=== PATIENT | female | born 1960 | race Caucasian/White ===

== ENCOUNTER 2017-06-07 13:25 | Emergency (ER) | payer BC ==
--- NOTE | 2017-06-07 14:16 | ER Document Report ---
ED General - General Chief Complaint: ETOH Abuse Stated Complaint: POSSIBLE DETOX Time Seen by Provider: 06/07/17 13:58 Mode of Arrival: Ambulatory Information source: Patient Notes: 57-year-old female presents with complaints of wanting to stop drinking. Patient notes she has had an extensive history of alcohol abuse, normally drinks extensively throughout the day, patient has never seized from withdrawing. Last drinks were this morning. Patient denies feeling any withdrawal symptoms at this time TRAVEL OUTSIDE OF THE [place] IN LAST 30 DAYS: No - HPI Onset: Just prior to arrival Onset/Duration: Sudden Quality of pain: No pain Severity: None Pain Level: Denies Associated symptoms: None Exacerbated by: Denies Relieved by: Denies Similar symptoms previously: Yes - detox 10 years ago Recently seen / treated by doctor: Yes Past Medical History - Social History Smoking Status: Former Smoker Cigarette use (# per day): No Chew tobacco use (# tins/day): No Smoking Education Provided: No Frequency of alcohol use: Heavy Drug Abuse: None Family History: Reviewed & Not Pertinent Patient has suicidal ideation: No Patient has homicidal ideation: No - Past Medical History Cardiac Medical History: Reports: Hx Hypercholesterolemia, Hx Hypertension Endocrine Medical History: Reports: Hx Diabetes Mellitus Type 2 Renal/ Medical History: Denies: Hx Peritoneal Dialysis Psychiatric Medical History: Reports: Hx Depression Past Surgical History: Reports: Hx Mastectomy - L side Review of Systems - Review of Systems Notes: REVIEW OF SYSTEMS: CONSTITUTIONAL : Denies fever, chills, or sweats. Denies recent illness. EENT: Denies eye, ear, throat, or mouth pain or symptoms. Denies nasal or sinus congestion or discharge. Denies throat, tongue, or mouth swelling or difficulty swallowing. CARDIOVASCULAR: Denies chest pain. Denies palpitations or racing or irregular heart beat. Denies ankle edema. RESPIRATORY: Denies cough, cold, or chest congestion. Denies shortness of breath, difficulty breathing, or wheezing. GASTROINTESTINAL: Denies abdominal pain or distention. Denies nausea, vomiting , or diarrhea. Denies blood in vomitus, stools, or per rectum. Denies black, tarry stools. Denies constipation. GENITOURINARY: Denies difficulty urinating, painful urination, burning, frequency, blood in urine, or discharge. FEMALE GENITOURINARY: Denies vaginal bleeding, heavy or abnormal periods, irregular periods. Denies vaginal discharge or odor. MUSCULOSKELETAL: Denies back or neck pain or stiffness. Denies joint pain or swelling. SKIN: Denies rash, lesions or sores. HEMATOLOGIC : Denies easy bruising or bleeding. LYMPHATIC: Denies swollen, enlarged glands. NEUROLOGICAL: Denies confusion or altered mental status. Denies passing out or loss of consciousness. Denies dizziness or lightheadedness. Denies headache. Denies weakness or paralysis or loss of use of either side. Denies problems with gait or speech. Denies sensory loss, numbness, or tingling. Denies seizures. PSYCHIATRIC: Admits to extensive alcohol use ALL OTHER SYSTEMS REVIEWED AND NEGATIVE. PHYSICAL EXAMINATION: GENERAL: Thin appearing female HEAD: Atraumatic, normocephalic. EYES: Pupils equal round and reactive to light, extraocular movements intact, conjunctiva are normal. ENT: Nares patent, oropharynx clear without exudates. Moist mucous membranes. NECK: Normal range of motion, supple without lymphadenopathy LUNGS: Breath sounds clear to auscultation bilaterally and equal. No wheezes rales or rhonchi. HEART: Regular rate and rhythm without murmurs ABDOMEN: Soft, nontender, nondistended abdomen. No guarding, no rebound. No masses appreciated. Female : deferred Musculoskeletal: Normal range of motion, no pitting or edema. No cyanosis. NEUROLOGICAL: Cranial nerves grossly intact. Normal speech, normal gait. Normal sensory, motor exams PSYCH: daughter notes patient has suicidal ideation patient denies SKIN: Warm, Dry, normal turgor, no rashes or lesions noted. Dictation was performed using veriCAR voice recognition software Physical Exam - Vital signs Vitals: Temp Pulse Resp BP Pulse Ox 98.4 F 98 20 181/116 H 99 06/07/17 13:33 06/07/17 13:33 06/07/17 13:33 06/07/17 13:33 06/07/17 13:33 Course - Re-evaluation Re-evalutation: 06/07/17 14:16 Mental health will evaluate patient, lab work pending 06/07/17 17:09 Patient was evaluated by mental health believe patient is stable for detox outpatient, family has already made contact with outpatient detox as well, they wish to go home to follow-up tomorrow morning where they have an appointment After performing a Medical Screening Examination, I estimate there is LOW risk for any life threatening mental health issues. At this time the patient looks extremely well and has not attempted severe self harm. I have reevaluated this patient multiple times and no significant life threatening changes are noted. The patient and I have discussed the diagnosis and risks, and we agree with discharging home with close follow-up with the understanding that symptoms and presentations can change. We also discussed returning to the Emergency Department immediately if new or worsening symptoms occur. We have discussed the symptoms which are most concerning (hallucinations, thoughts or actions of self harm or harm to others) that necessitate immediate return. - Vital Signs Vital signs: Temp Pulse Resp BP Pulse Ox 98.4 F 98 20 181/116 H 99 06/07/17 13:33 06/07/17 13:33 06/07/17 13:33 06/07/17 13:33 06/07/17 13:33 - Laboratory Result Diagrams: 06/07/17 14:20 06/07/17 14:20 Laboratory results interpreted by me: 06/07/17 06/07/17 14:20 14:20 MCV 98 H Plt Count 143 L Sodium 146.2 H Chloride 109 H BUN 24 H Glucose 132 H AST 51 H ALT 54 H Salicylates < 1.0 L Acetaminophen < 10 L Discharge - Discharge Clinical Impression: ETOH abuse Condition: Fair Disposition: HOME, SELF-CARE Additional Instructions: CHRONIC ALCOHOLISM and ALCOHOL ABUSE: Your evaluation reveals evidence of chronic alcoholism, an addiction to alcohol. The tendency to alcoholism may be inherited. Chronic use of alcohol weakens muscles, causes fatty deposits in the liver , damages the stomach, makes you more prone to infections, and can cause defects in unborn children. In the long run, brain atrophy and cirrhosis of the liver result. You are also at greater risk for certain types of cancer, such as cancer of the mouth, throat, stomach, and liver. Counselling services are available to help you. In-hospital treatment programs often help. Support groups such as Alcoholics Anonymous can be very useful in beating this addiction. Your physician can make a referral for you. As alcoholics often are prone to other addictions, you should discuss your use of any other medications with the doctor. ALCOHOL WITHDRAWAL: Your symptoms are caused by alcohol withdrawal. After a period of frequent drinking, the brain and body are changed by the alcohol. When you quit or reduce your drinking, the nervous system becomes unstable. Withdrawal symptoms can start a few hours after your last drink, but sometimes don't begin until a couple of days later. Symptoms can include shakiness, sweating, insomnia, nausea , vomiting, fearfulness, hallucinations, and seizures. In addition to the acute effects of alcohol withdrawal, we often have to deal with the medical effects of alcoholism. These problems often include dehydration, stomach irritation, intestinal bleeding, low blood sugar, liver disease, and pancreas inflammation. Treatment for alcohol withdrawal includes mild sedatives, vitamins, and fluids. You need to be with someone who can help if symptoms become severe. Many patients can withdraw at home. Admission to the hospital or a detox facility may be necessary if withdrawal symptoms are severe and uncontrollable. Abstaining from alcohol is the only effective long-term treatment. If you start drinking again, you will not be able to control yourself after the first drink. Treatment programs are available. In addition, many alcoholics benefit from Alcoholics Anonymous or other support groups available through your counselor or jew wire technician. AL-ANON and ALA-TEEN are support groups for friends and family members of an alcoholic. Go to the emergency room if you develop persistent vomiting, severe abdominal pain, fever, shortness of breath, hallucinations, uncontrollable tremors, or seizures. You should follow through with going to [facility] by 0900 tomorrow (06/08/2017) for alcohol detoxification.
[2017-06-07 14:34] LABS: ABSOLUTE EOSINOPHILS # (AUTO) 0.1 10^3/uL (0.0-0.6); ABSOLUTE LYMPHOCYTES (AUTO) 2.4 10^3/uL (0.5-4.7); ABSOLUTE MONOCYTES (AUTO) 0.4 10^3/uL (0.1-1.4); ABSOLUTE NEUT (AUTO) 4.7 10^3/uL (1.7-8.2); BASOPHILS % (AUTO) 0.2 % (0-2); EOSINOPHILS % (AUTO) 0.7 % (0-6); HEMATOCRIT 45.1 % (36.0-47.0); HEMOGLOBIN 15.2 g/dL (12.0-15.5); HGB HCT DIFFERENCE 0.5; LYMPHOCYTES % (AUTO) 31.9 % (13-45); MEAN CORPUSCULAR HEMOGLOBIN 33.1 pg (27.0-33.4); MEAN CORPUSCULAR HGB CONC 33.7 g/dL (32.0-36.0); MEAN CORPUSCULAR VOLUME 98 fl (80-97); MONOCYTES % (AUTO) 5.1 % (3-13); RED CELL DISTRIBUTION WIDTH 13.9 % (11.5-14.0); SEGMENTED NEUTROPHILS % (AUTO) 62.1 % (42-78); WHITE BLOOD COUNT 7.6 10^3/uL (4.0-10.5)
[2017-06-07 14:55] LABS: ALANINE AMINOTRANSFERASE 54 U/L (9-52); ALBUMIN 4.6 g/dL (3.5-5.0); ALCOHOL 195 mg/dL (NONE DETECTED); ALKALINE PHOSPHATASE 107 U/L (38-126); ANION GAP 11 (5-19); ASPARTATE AMINO TRANSFERASE 51 U/L (14-36); BILIRUBIN,DIRECT 0.2 mg/dL (0.0-0.4); BILIRUBIN,TOTAL 0.9 mg/dL (0.2-1.3); BLOOD UREA NITROGEN 24 mg/dL (7-20); CALCIUM 9.3 mg/dL (8.4-10.2); CARBON DIOXIDE 26 mmol/L (22-30); CHLORIDE 109 mmol/L (98-107); CREATININE RESULT 0.67 mg/dL (0.52-1.25); GLUCOSE 132 mg/dL (75-110); POTASSIUM 4.1 mmol/L (3.6-5.0); SODIUM 146.2 mmol/L (137-145); TOTAL PROTEIN 7.9 g/dL (6.3-8.2)
[2017-06-07 15:01] LABS: URINE BARBITURATES SCREEN NEGATIVE; URINE METHADONE SCREEN NEGATIVE; URINE OPIATES LOW NEGATIVE; URINE PHENCYCLIDINE SCREEN NEGATIVE
--- NOTE | 2017-06-07 17:08 | ER Document Report ---
ED Psych Disorder / Suicide - General Chief Complaint: ETOH Abuse Stated Complaint: POSSIBLE DETOX Time Seen by Provider: 06/07/17 13:58 Mode of Arrival: Ambulatory Information source: Patient, Relative - daughter TRAVEL OUTSIDE OF THE [place] IN LAST 30 DAYS: No - HPI Patient complains to provider of: Other - alcohol intoxication and use Onset: This morning Suicide Risk Factors: Substance abuse Situational problems related to: Spouse - recent separation Normal mood: Yes Associated symptoms: Normal affect, Normal mood Similar symptoms previously: Yes Recently seen / treated by doctor: Yes Notes: Patient is a 57 year old female who presented to the ED via her daughter today for alcohol intoxication, use, and wanting detox. Past Medical History - General Information source: Patient - Social History Smoking Status: Former Smoker Cigarette use (# per day): No Chew tobacco use (# tins/day): No Frequency of alcohol use: Heavy Drug Abuse: None Family History: Reviewed & Not Pertinent Patient has suicidal ideation: No Patient has homicidal ideation: No - Past Medical History Cardiac Medical History: Reports: Hx Hypercholesterolemia, Hx Hypertension Endocrine Medical History: Reports: Hx Diabetes Mellitus Type 2 Renal/ Medical History: Denies: Hx Peritoneal Dialysis Psychiatric Medical History: Reports: Hx Depression Past Surgical History: Reports: Hx Mastectomy - L side Physical Exam - Vital signs Vitals: Temp Pulse Resp BP Pulse Ox 98.4 F 98 20 181/116 H 99 06/07/17 13:33 06/07/17 13:33 06/07/17 13:33 06/07/17 13:33 06/07/17 13:33 Course - Vital Signs Vital signs: Temp Pulse Resp BP Pulse Ox 98.4 F 98 20 181/116 H 99 06/07/17 13:33 06/07/17 13:33 06/07/17 13:33 06/07/17 13:33 06/07/17 13:33 - Laboratory Result Diagrams: 06/07/17 14:20 06/07/17 14:20 Laboratory results interpreted by me: 06/07/17 06/07/17 14:20 14:20 MCV 98 H Plt Count 143 L Sodium 146.2 H Chloride 109 H BUN 24 H Glucose 132 H AST 51 H ALT 54 H Salicylates < 1.0 L Acetaminophen < 10 L Discharge - Discharge Clinical Impression: Alcohol abuse Condition: Fair Disposition: HOME, SELF-CARE Additional Instructions: CHRONIC ALCOHOLISM and ALCOHOL ABUSE: Your evaluation reveals evidence of chronic alcoholism, an addiction to alcohol. The tendency to alcoholism may be inherited. Chronic use of alcohol weakens muscles, causes fatty deposits in the liver , damages the stomach, makes you more prone to infections, and can cause defects in unborn children. In the long run, brain atrophy and cirrhosis of the liver result. You are also at greater risk for certain types of cancer, such as cancer of the mouth, throat, stomach, and liver. Counselling services are available to help you. In-hospital treatment programs often help. Support groups such as Alcoholics Anonymous can be very useful in beating this addiction. Your physician can make a referral for you. As alcoholics often are prone to other addictions, you should discuss your use of any other medications with the doctor. ALCOHOL WITHDRAWAL: Your symptoms are caused by alcohol withdrawal. After a period of frequent drinking, the brain and body are changed by the alcohol. When you quit or reduce your drinking, the nervous system becomes unstable. Withdrawal symptoms can start a few hours after your last drink, but sometimes don't begin until a couple of days later. Symptoms can include shakiness, sweating, insomnia, nausea , vomiting, fearfulness, hallucinations, and seizures. In addition to the acute effects of alcohol withdrawal, we often have to deal with the medical effects of alcoholism. These problems often include dehydration, stomach irritation, intestinal bleeding, low blood sugar, liver disease, and pancreas inflammation. Treatment for alcohol withdrawal includes mild sedatives, vitamins, and fluids. You need to be with someone who can help if symptoms become severe. Many patients can withdraw at home. Admission to the hospital or a detox facility may be necessary if withdrawal symptoms are severe and uncontrollable. Abstaining from alcohol is the only effective long-term treatment. If you start drinking again, you will not be able to control yourself after the first drink. Treatment programs are available. In addition, many alcoholics benefit from Alcoholics Anonymous or other support groups available through your counselor or alevism hoop maker. AL-ANON and MINDI-TEEN are support groups for friends and family members of an alcoholic. Go to the emergency room if you develop persistent vomiting, severe abdominal pain, fever, shortness of breath, hallucinations, uncontrollable tremors, or seizures. You should follow through with going to [facility] by 0900 tomorrow (06/08/2017) for alcohol detoxification.
[2017-06-07 17:15] VITALS: BP 179/105
--- NOTE | 2017-06-07 21:12 | EKG REPORT ---
SEVERITY:- BORDERLINE ECG - SINUS RHYTHM LEFT AXIS DEVIATION : Confirmed by: Rolando Hannon MD 07-Jun-2017 21:11:35
== END 2017-06-07 17:30 | disposition home or self-care (01) ==
LOC: ER 13:25
DX: F10.229 Alcohol dependence with intoxication, unspecified (principal); Z87.891 Personal history of nicotine dependence
CPT/HCPCS: 36415; 80053; 80307; 85025; 93005; 93010; 99284

== ENCOUNTER 2017-12-09 09:22 | Emergency (ER) | payer BC ==
--- NOTE | 2017-12-09 09:47 | ER Document Report ---
ED Medical Screen (RME) - General Chief Complaint: Abnormal Lab Results Stated Complaint: ABNORMAL LABS Time Seen by Provider: 12/09/17 09:35 Notes: 57-year-old female alcoholic sent to emergency room for abnormal lab work done yesterday at [facility]. Her daughter noticed that her eyes were turning yellow and insisted she be seen. Her potassium was 3.0 CBC was normal her total bilirubin was 14.0 direct was 12.48, SGOT 266, SGPT 95, cholesterol 448, triglycerides 531. Thyroid functions normal. She was told she had a urinary tract infection based on the dark-colored urine but culture showed colony count less than 10,000, she was still treated with Cipro for this dark urine which I suspect was due to all the bilirubin. We will repeat her lab work at this time, get a right upper quadrant ultrasound. I have greeted and performed a rapid initial assessment of this patient. A comprehensive ED assessment and evaluation of the patient, analysis of test results and completion of the medical decision making process will be conducted by additional ED providers. TRAVEL OUTSIDE OF THE [place] IN LAST 30 DAYS: No - Related Data Allergies/Adverse Reactions: Penicillins Allergy (Verified 12/09/17 09:23) Past Medical History - Social History Frequency of alcohol use: Occasional Drug Abuse: None - Past Medical History Cardiac Medical History: Reports: Hx Hypercholesterolemia, Hx Hypertension Endocrine Medical History: Reports: Hx Diabetes Mellitus Type 2 Renal/ Medical History: Denies: Hx Peritoneal Dialysis Psychiatric Medical History: Reports: Hx Depression Past Surgical History: Reports: Hx Mastectomy - L side Physical Exam - Vital signs Vitals: Temp Pulse Resp BP Pulse Ox 97.9 F 112 H 16 138/97 H 98 12/09/17 09:26 12/09/17 09:26 12/09/17 09:26 12/09/17 09:26 12/09/17 09:26 Course - Vital Signs Vital signs: Temp Pulse Resp BP Pulse Ox 97.9 F 112 H 16 138/97 H 98 12/09/17 09:26 12/09/17 09:26 12/09/17 09:26 12/09/17 09:26 12/09/17 09:26
[2017-12-09 10:19] LABS: APPEARANCE,URINE CLOUDY; BILIRUBIN,URINE MODERATE (NEGATIVE); CALCIUM OXALATE CRYSTALS,URINE RARE /HPF; COLOR,URINE AMBER; GLUCOSE, URINE NEGATIVE (NEGATIVE); HEMATOCRIT 40.3 % (36.0-47.0); HEMOGLOBIN 13.6 g/dL (12.0-15.5); KETONES,URINE NEGATIVE (NEGATIVE); LEUKOCYTE ESTERASE,URINE NEGATIVE (NEGATIVE); MEAN CORPUSCULAR HEMOGLOBIN 34.2 pg (27.0-33.4); MEAN CORPUSCULAR HGB CONC 33.7 g/dL (32.0-36.0); MEAN CORPUSCULAR VOLUME 101 fl (80-97); NITRITE,URINE NEGATIVE (NEGATIVE); PROTEIN,URINE NEGATIVE (NEGATIVE); RED BLOOD COUNT 3.97 10^6/uL (3.72-5.28); RED CELL DISTRIBUTION WIDTH 18.8 % (11.5-14.0); URINE SPECIFIC GRAVITY 1.009; WHITE BLOOD COUNT 3.6 10^3/uL (4.0-10.5)
[2017-12-09 10:35] LABS: ALANINE AMINOTRANSFERASE 135 U/L (9-52); ALBUMIN 3.8 g/dL (3.5-5.0); ALKALINE PHOSPHATASE 386 U/L (38-126); ANION GAP 16 (5-19); ASPARTATE AMINO TRANSFERASE 368 U/L (14-36); BILIRUBIN,DIRECT 12.9 mg/dL (0.0-0.4); BILIRUBIN,TOTAL 15.6 mg/dL (0.2-1.3); BLOOD UREA NITROGEN 13 mg/dL (7-20); CALCIUM 9.7 mg/dL (8.4-10.2); CARBON DIOXIDE 29 mmol/L (22-30); CHLORIDE 96 mmol/L (98-107); GLUCOSE 156 mg/dL (75-110); POTASSIUM 3.3 mmol/L (3.6-5.0); SODIUM 140.9 mmol/L (137-145)
[2017-12-09 10:44] LABS: PLATELET COUNT 44 10^3/uL (150-450)
[2017-12-09 10:45] LABS: MAGNESIUM 1.2 mg/dL (1.6-2.3)
[2017-12-09 10:50] LABS: ABSOLUTE LYMPHOCYTES# (MANUAL) 1.6 10^3/uL (0.5-4.7); ABSOLUTE MONOCYTES # (MANUAL) 0.3 10^3/uL (0.1-1.4); ABSOLUTE NEUTROPHILS# (MANUAL) 1.6 10^3/uL (1.7-8.2); ANISOCYTOSIS 2+; BAND NEUTROPHILS % (MANUAL) 1 % (3-5); BASOPHILS % (MANUAL) 1 % (0-2); EOSINOPHILS % (MANUAL) 3 % (0-6); HYPOCHROMASIA SLIGHT; LYMPHOCYTES % (MANUAL) 44 % (13-45); METAMYELOCYTES % (MANUAL) 1 % (0); MONOCYTES % (MANUAL) 7 % (3-13); PLATELET COMMENT DECREASED; PLATELET LARGE PRESENT; SEGMENTED NEUTROPHILS % (MAN) 43 % (42-78); STOMATOCYTES 1+; TARGET CELLS 2+; TOTAL CELLS COUNTED 100
[2017-12-09 10:51] LABS: HYPERSEGMENTED NEUTROPHILS PRESENT
[2017-12-09] MEDS ORDERED: POTASSIUM CHLORIDE 20 MEQ/15 ML UDCUP PO ONE (10:51)
[2017-12-09] MEDS ORDERED: MAGNESIUM OXIDE 400 MG TABLET PO ONE (10:52)
--- NOTE | 2017-12-09 12:03 | RADIOLOGY REPORT (SQ) ---
EXAM DESCRIPTION: U/S ABDOMEN LIMITED W/O DOP COMPLETED DATE/TIME: 12/09/2017 11:49 am REASON FOR STUDY: Markedly elevated bili with elevated transaminases COMPARISON: None. TECHNIQUE: Dynamic and static grayscale images acquired of the abdomen and recorded on PACS. Additio nal selected color Doppler and spectral images recorded. LIMITATIONS: None. FINDINGS: PANCREAS: Midline pancreas LIVER: Normal size. Echogenic from diffuse hepatocellular disease or fatty infiltration. No focal m asses. No intrahepatic biliary ductal dilatation LIVER VASCULATURE: Normal directional flow of the main portal vein and hepatic veins. GALLBLADDER: No stones. Normal wall thickness. No pericholecystic fluid. ULTRASOUND-DETECTED ROSADO'S SIGN: Negative. INTRAHEPATIC DUCTS AND COMMON DUCT: CBD and intrahepatic ducts normal caliber. No filling defects. D istal most common duct not well seen due to duodenum gas INFERIOR VENA CAVA: Normal flow. AORTA: No aneurysm. RIGHT KIDNEY: Normal size. Normal echogenicity. No solid or suspicious masses. No hydronephrosis. No calcifications. PERITONEAL AND RIGHT PLEURAL SPACE: No ascites or effusions. OTHER: No other significant findings. IMPRESSION: Echogenic liver, could be seen in diffuse hepatocellular disease or fatty infiltration No biliary ductal dilatation No stones in the gallbladder TECHNICAL DOCUMENTATION: JOB ID: [id number] [employer]- All Rights Reserved
[2017-12-09 13:07] LABS: INTERNATIONAL RATION (INR) 0.85; PROTHROMBIN TIME 12.3 SEC (11.4-15.4)
--- NOTE | 2017-12-09 13:57 | ER Document Report ---
ED General - General Chief Complaint: Abnormal Lab Results Stated Complaint: ABNORMAL LABS Time Seen by Provider: 12/09/17 09:35 Mode of Arrival: Ambulatory Information source: Patient, [facility] Records Notes: This 57-year-old female alcoholic was sent to emergency room for abnormal lab work done yesterday at [facility]. Her daughter noticed that her eyes were turning yellow insisted she be seen at the clinic. Her potassium was 3.0, CBC was normal, total bilirubin was 14.0 with a direct of 12.48, SGOT 266, SGPT 95, cholesterol 448, triglycerides 531. Thyroid functions were normal. Viral hepatitis testing was negative. She was told she had a urinary tract infection based on the dark-colored urine but a culture showed a colony count of less than 10,000 despite this she was treated with Cipro for this dark urine which I suspect was due to the bilirubin. She has been here in the past for alcohol abuse, she has been in rehab at least 6 or 7 times unsuccessfully. She states she does not drink that much at this time. We will repeat her lab work this time, check magnesium, check coags, and get a right upper quadrant abdominal ultrasound. TRAVEL OUTSIDE OF THE [place] IN LAST 30 DAYS: No - Related Data Allergies/Adverse Reactions: Penicillins Allergy (Verified 12/09/17 09:23) Past Medical History - General Information source: Patient, [facility] Records - Social History Smoking Status: Current Every Day Smoker Cigarette use (# per day): Yes Chew tobacco use (# tins/day): No Smoking Education Provided: No Frequency of alcohol use: Heavy Drug Abuse: None Occupation: Unemployed Lives with: Family Family History: Reviewed & Not Pertinent Patient has suicidal ideation: No Patient has homicidal ideation: No - Past Medical History Cardiac Medical History: Reports: Hx Hypercholesterolemia, Hx Hypertension Pulmonary Medical History: Reports: None EENT Medical History: Reports: None Neurological Medical History: Reports: None Endocrine Medical History: Reports: Hx Diabetes Mellitus Type 2 Renal/ Medical History: Reports: None GI Medical History: Reports: None Musculoskeltal Medical History: Reports None Skin Medical History: Reports None Psychiatric Medical History: Reports: Hx Depression Past Surgical History: Reports: Hx Mastectomy - L side Review of Systems - Review of Systems Constitutional: No symptoms reported EENT: No symptoms reported Cardiovascular: No symptoms reported Respiratory: No symptoms reported Gastrointestinal: No symptoms reported Genitourinary: No symptoms reported Female Genitourinary: Post menopausal Musculoskeletal: No symptoms reported Skin: No symptoms reported Hematologic/Lymphatic: No symptoms reported Neurological/Psychological: No symptoms reported Physical Exam - Vital signs Vitals: Temp Pulse Resp BP Pulse Ox 97.9 F 112 H 16 138/97 H 98 12/09/17 09:26 12/09/17 09:26 12/09/17 09:26 12/09/17 09:26 12/09/17 09:26 Interpretation: Normal - General General appearance: Appears well, Alert In distress: None Notes: Later during the day when all her labs were coming back she was starting to get some shakes. - HEENT Head: Normocephalic, Atraumatic Eyes: Scleral icterus Extraocular movements intact: Yes Pupils: PERRL Neck: Normal - Respiratory Respiratory status: No respiratory distress Breath sounds: Other - Coarse breath sounds - Cardiovascular Rhythm: Regular, Tachycardia - Heart rate about 110 Heart sounds: Normal auscultation Murmur: No - Abdominal Inspection: Normal Bowel sounds: Normal Tenderness: Nontender - Back Back: Normal - Extremities General upper extremity: Normal inspection General lower extremity: Normal inspection - Neurological Neuro grossly intact: Yes - Psychological Associated symptoms: Normal affect, Normal mood - Skin Skin Temperature: Warm Skin Moisture: Dry Skin Color: Normal Course - Re-evaluation Re-evalutation: 12/09/17 17:37 The ultrasound and lab work was reviewed with the patient and her daughter. The patient is not interested in assistance getting into a detox program at this time. She is advised to increase potassium in her diet to include several bananas today and increase fruits and vegetables. She was given a prescription for Mag- Ox to start today. She was given copies of her lab work and ultrasound report to take to her primary care provider in the next week for review and reevaluation of her status. She was encouraged to return if any new or worsening symptoms. - Vital Signs Vital signs: Temp Pulse Resp BP Pulse Ox 98.5 F 72 20 116/83 100 12/09/17 14:58 12/09/17 14:58 12/09/17 14:58 12/09/17 14:58 12/09/17 14:58 - Laboratory Result Diagrams: 12/09/17 09:57 12/09/17 09:57 Laboratory results interpreted by me: 12/09/17 12/09/17 12/09/17 09:57 09:57 09:57 WBC 3.6 L MCV 101 H MCH 34.2 H RDW 18.8 H Plt Count 44 L Band Neutrophils % 1 L Metamyelocytes % 1 H Abs Neuts (Manual) 1.6 L Potassium 3.3 L Chloride 96 L Est GFR (Non-Af Amer) 58 L Glucose 156 H Magnesium 1.2 L* Total Bilirubin 15.6 H Direct Bilirubin 12.9 H AST 368 H ALT 135 H Alkaline Phosphatase 386 H Urine Bilirubin MODERATE H Urine Urobilinogen 4.0 H - Diagnostic Test Radiology reviewed: Image reviewed, Reports reviewed - Ultrasound shows echogenic liver consistent with diffuse hepatocellular disease no stones in the gallbladder no biliary ductal dilatation. Discharge - Discharge Clinical Impression: Alcoholic hepatitis without ascites, Hypokalemia, Hypomagnesemia Condition: Stable Disposition: HOME, SELF-CARE Additional Instructions: Alcoholic Hepatitis: You have inflammation of the liver caused by alcohol. This is called "alcoholic hepatitis." Symptoms can include malaise, fatigue, lack of appetite , nausea and vomiting, dark urine, and jaundice. In the long run, alcohol damages the liver to cause cirrhosis. There is no cure for alcoholic hepatitis. The inflammation will go away if you stop drinking. While you are ill, you may receive medication to make you more comfortable. Do not drink alcohol, and don't take any drug or medication not approved by your doctor. Rest and try to eat a healthy diet. Call the doctor if vomiting or abdominal pain become severe. //////////////////////////////////////////////////////////////////////////////// //////////////////////////////////////////////////////////////////////////////// ////////////////// Your workup is most consistent with alcohol related hepatocellular injury also known his alcoholic hepatitis. He also have a low serum potassium and low serum magnesium levels. This is commonly seen in chronic alcohol abuse. You will be given a prescription for magnesium supplements. You should increase potassium in your diet. A good source of potassium is bananas and other fruits and vegetables. It is essential that you stop drinking alcohol to prevent further damage to your liver. You will be given copies of your lab work and ultrasounds to take back to your primary care provider for further management of your liver disease. You should follow-up with your doctor in the next 7-10 days to recheck your serum electrolytes and magnesium levels to see if he will require further potassium and magnesium supplements. RETURN TO THE EMERGENCY ROOM IF ANY NEW OR WORSENING SYMPTOMS. Prescriptions: Magnesium Oxide 400 mg PO BID #20 tablet
[2017-12-09 15:10] VITALS: BP 116/83
== END 2017-12-09 15:00 | disposition home or self-care (01) ==
LOC: ER 09:22
DX: E87.6 Hypokalemia (principal); E83.42 Hypomagnesemia; K70.10 Alcoholic hepatitis without ascites; F17.210 Nicotine dependence, cigarettes, uncomplicated; E78.00 Pure hypercholesterolemia, unspecified; I10 Essential (primary) hypertension; E11.9 Type 2 diabetes mellitus without complications; Z88.0 Allergy status to penicillin
CPT/HCPCS: 36415; 76705; 80053; 81001; 83735; 85025; 85610; 99284

== ENCOUNTER 2019-02-23 10:52 | Emergency (ER) | payer BC ==
[2019-02-23 11:33] LABS: HEMATOCRIT 34.6 % (36.0-47.0); MEAN CORPUSCULAR VOLUME 105 fl (80-97); RED BLOOD COUNT 3.28 10^6/uL (3.72-5.28); RED CELL DISTRIBUTION WIDTH 19.8 % (11.5-14.0); WHITE BLOOD COUNT 8.1 10^3/uL (4.0-10.5)
[2019-02-23 11:35] LABS: INTERNATIONAL RATION (INR) 1.82
[2019-02-23 11:49] LABS: ALANINE AMINOTRANSFERASE 162 U/L (9-52); ALBUMIN 3.3 g/dL (3.5-5.0); ALKALINE PHOSPHATASE 382 U/L (38-126); ANION GAP 18 (5-19); ASPARTATE AMINO TRANSFERASE 559 U/L (14-36); BLOOD UREA NITROGEN 16 mg/dL (7-20); CARBON DIOXIDE 24 mmol/L (22-30); CHLORIDE 88 mmol/L (98-107); GLUCOSE 83 mg/dL (75-110); TOTAL PROTEIN 8.4 g/dL (6.3-8.2)
[2019-02-23] MEDS ORDERED: NORMAL SALINE 1000 ML 1,000 ML IV ONE ×2 (11:52→19:50)
[2019-02-23] MEDS ORDERED: THIAMINE HCL 100 MG, FOLIC ACID 1 MG in NORMAL SALINE 250 ML IV ONE (11:53)
--- NOTE | 2019-02-23 11:57 | ER Document Report ---
ED General - General Chief Complaint: Weakness Stated Complaint: WEAKNESS, DETOX Time Seen by Provider: 02/23/19 11:51 TRAVEL OUTSIDE OF THE [place] IN LAST 30 DAYS: No - HPI Notes: Patient is a 58-year-old female that presents to the emergency department for chief complaint of generalized weakness. Patient reports feeling general fatigue for the last week. Family noticed about the same time she began to feel fatigued she started to look jaundiced. Patient does drink for shots of liquor daily and has for years. She states she has tried to detox herself in the past but continued drinking when she felt tremulous. Patient denies history of alcohol withdrawal seizures. She reports feeling general fatigue and decreased appetite. She denies associated fever, chills, nausea, vomiting, abdominal pain or distention, cough and urinary complaints. She states she does have a history of alcoholic hepatitis in the past. Past Medical History: Alcoholic hepatitis, breast cancer Past Surgical History: Mastectomy Social History: 4 liquor drinks daily, daily tobacco, denies drug use Family History: Reviewed and noncontributory for presenting illness Allergies: Reviewed, see documented allergy list. REVIEW OF SYSTEMS: CONSTITUTIONAL : No fever No chills No diaphoresis No recent illness Generalized weakness Decreased appetite EENT: No vision changes No congestion No sore throat CARDIOVASCULAR: No chest pain No palpitations RESPIRATORY: No shortness of breath No cough No difficulty breathing GASTROINTESTINAL: No abdominal pain No nausea No vomiting No diarrhea GENITOURINARY: No dysuria No hematuria No difficulty urinating MUSCULOSKELETAL: No back pain No leg pain No arm pain SKIN: No rashes No lesions Jaundice LYMPHATIC: No swollen, enlarged glands. NEUROLOGICAL: No lightheadedness No headache No weakness No paresthesias PSYCHIATRIC: No anxiety No depression PHYSICAL EXAMINATION: Vital signs reviewed, nursing noted reviewed. GENERAL: Well-appearing, thin and in no acute distress. HEAD: Atraumatic, normocephalic. EYES: Eyes appear normal, extraocular movements intact, sclera icteric, PERRLA ENT: nares patent, oropharynx clear without exudates. Dry mucous membranes. NECK: Normal range of motion, supple without lymphadenopathy LUNGS: Breath sounds clear to auscultation bilaterally and equal. No wheezes rales or rhonchi. HEART: Regular rate and rhythm without murmurs ABDOMEN: Protuberant, soft, nontender, normoactive bowel sounds. No rebound, guarding, or rigidity. No masses appreciated. EXTREMITIES: Nontender, good range of motion, no pitting or edema. NEUROLOGICAL: No focal neurological deficits. Moves all extremities spontaneously Motor and sensory grossly intact on exam. PSYCH: Normal mood, normal affect. SKIN: Warm, Dry,jaundiced - Related Data Allergies/Adverse Reactions: Penicillins Allergy (Verified 02/23/19 10:55) Past Medical History - Social History Smoking Status: Current Every Day Smoker Family History: Reviewed & Not Pertinent - Past Medical History Cardiac Medical History: Reports: Hx Hypercholesterolemia, Hx Hypertension Endocrine Medical History: Reports: Hx Diabetes Mellitus Type 2 Renal/ Medical History: Denies: Hx Peritoneal Dialysis Psychiatric Medical History: Reports: Hx Depression Past Surgical History: Reports: Hx Mastectomy - L side, Hx Tonsillectomy - Adenoids Physical Exam - Vital signs Vitals: Temp Pulse Resp BP Pulse Ox 97.2 F 78 16 100/64 98 02/23/19 10:59 02/23/19 10:59 02/23/19 10:59 02/23/19 10:59 02/23/19 10:59 Course - Re-evaluation Re-evalutation: 02/23/19 11:56 Vitals reviewed. Nursing notes reviewed. Patient does appear jaundiced with scleral icterus consistent with her history of alcoholism and hepatitis. Patient given IV fluids, thiamine and folate. She is not tachycardic or having any active symptoms of alcohol withdrawal. Her last alcohol intake was at 6 PM last night. Patient placed on telemetry monitoring. 02/23/19 15:43 Patient reevaluated and has remained hemodynamically stable. She has no new complaints. Her blood work shows acute liver failure with a total bili of 41. Patient does have a slight elevation of her INR at 1.8. Creatinine is normal at 0.99. Ultrasound shows some trace ascites. Patient was given Solu-Medrol for acute alcoholic hepatitis. I discussed her care with Dr. Archer hematology at [facility]. He recommends 40 mg of prednisone daily for 5-7 days to see if she is responsive and if she is to continue it for the next 30 days. He does not feel that she is a candidate for liver transplant or that she is requiring admission at a facility with hematology. Patient's care discussed with Dr. Johnson who does not feel she is appropriate for admission at this facility given her presentation and likely need for GI and nephrology evaluation. Patient's care was discussed with the hospitalist service at [facility] who feels she is more appropriate for ICU. Patient's care was then discussed with Dr. Velazco who accepts patient for transfer and admission in their ICU. Patient's ultrasound was resulted as pericholecystic fluid, sludge and biliary wall thickening concerning for acute cholecystitis. Patient does not have any right upper quadrant tenderness and has no leukocytosis. She was given a dose of Zosyn for concern of possible acute cholecystitis. Patient is stable for transfer and in agreement with all plans of care. Laboratory 02/23/19 02/23/19 02/23/19 11:06 11:06 11:06 WBC 8.1 RBC 3.28 L Hgb 11.6 L Hct 34.6 L MCV 105 H MCH 35.3 H MCHC 33.5 RDW 19.8 H Plt Count 69 L Total Counted 100 Seg Neutrophils % Not Reportable Seg Neuts % (Manual) 84 H Lymphocytes % Not Reportable Lymphocytes % (Manual) 9 L Monocytes % Not Reportable Monocytes % (Manual) 5 Eosinophils % Not Reportable Eosinophils % (Manual) 2 Basophils % Not Reportable Basophils % (Manual) 0 Absolute Neutrophils Not Reportable Abs Neuts (Manual) 6.8 Absolute Lymphocytes Not Reportable Abs Lymphs (Manual) 0.7 Absolute Monocytes Not Reportable Abs Monocytes (Manual) 0.4 Absolute Eosinophils Not Reportable Absolute Eos (Manual) 0.2 Absolute Basophils Not Reportable Abs Basophils (Manual) 0.0 Toxic Vacuolation PRESENT Platelet Comment DECREASED Polychromasia SLIGHT Poikilocytosis 1+ Anisocytosis 2+ Macrocytosis 2+ Target Cells 1+ PT 22.0 H INR 1.82 Sodium 130.0 L Potassium 2.5 L* Chloride 88 L Carbon Dioxide 24 Anion Gap 18 BUN 16 Creatinine 0.99 Est GFR ( Amer) > 60 Est GFR (Non-Af Amer) 57 L Glucose 83 POC Glucose Calcium 9.1 Total Bilirubin 41.0 H Direct Bilirubin 37.8 H Neonat Total Bilirubin Not Reportable Neonat Direct Bilirubin Not Reportable Neonat Indirect Bili Not Reportable AST 559 H ALT 162 H Alkaline Phosphatase 382 H Troponin I Total Protein 8.4 H Albumin 3.3 L Urine Color Urine Appearance Urine pH Ur Specific [place] Urine Protein Urine Glucose (UA) Urine Ketones Urine Blood Urine Nitrite Urine Bilirubin Urine Urobilinogen Ur Leukocyte Esterase Urine WBC (Auto) Urine RBC (Auto) U Hyaline Cast (Auto) Urine Bacteria (Auto) Urine WBC Clumps Squamous Epi Cells Auto Amorphous Sediment Auto WBC Casts (Auto) Urine Mucus (Auto) Urine Ascorbic Acid Serum Alcohol 255 02/23/19 02/23/19 02/23/19 11:06 11:36 12:04 WBC RBC Hgb Hct MCV MCH MCHC RDW Plt Count Total Counted Seg Neutrophils % Seg Neuts % (Manual) Lymphocytes % Lymphocytes % (Manual) Monocytes % Monocytes % (Manual) Eosinophils % Eosinophils % (Manual) Basophils % Basophils % (Manual) Absolute Neutrophils Abs Neuts (Manual) Absolute Lymphocytes Abs Lymphs (Manual) Absolute Monocytes Abs Monocytes (Manual) Absolute Eosinophils Absolute Eos (Manual) Absolute Basophils Abs Basophils (Manual) Toxic Vacuolation Platelet Comment Polychromasia Poikilocytosis Anisocytosis Macrocytosis Target Cells PT INR Sodium Potassium Chloride Carbon Dioxide Anion Gap BUN Creatinine Est GFR ( Amer) Est GFR (Non-Af Amer) Glucose POC Glucose 83 Calcium Total Bilirubin Direct Bilirubin Neonat Total Bilirubin Neonat Direct Bilirubin Neonat Indirect Bili AST ALT Alkaline Phosphatase Troponin I < 0.012 Total Protein Albumin Urine Color BROWN Urine Appearance CLOUDY Urine pH 5.0 Ur Specific [place] 1.016 Urine Protein 30 H Urine Glucose (UA) 50 H Urine Ketones NEGATIVE Urine Blood NEGATIVE Urine Nitrite NEGATIVE Urine Bilirubin MODERATE H Urine Urobilinogen 4.0 H Ur Leukocyte Esterase NEGATIVE Urine WBC (Auto) 4 Urine RBC (Auto) 0 U Hyaline Cast (Auto) 29 Urine Bacteria (Auto) 3+ Urine WBC Clumps FEW Squamous Epi Cells Auto 21 Amorphous Sediment Auto TRACE WBC Casts (Auto) 2 Urine Mucus (Auto) MOD Urine Ascorbic Acid 20 H Serum Alcohol Chest X-Ray 02/23/19 11:01 IMPRESSION: NO ACUTE RADIOGRAPHIC FINDING IN THE CHEST. Abdomen Ultrasound 02/23/19 12:40 IMPRESSION: Sludge in the gallbladder with pericholecystic fluid in gallbladder wall thickening. Cholecystitis. Enlarged fatty liver. Mild ascites. 02/23/19 16:40 - Vital Signs Vital signs: Temp Pulse Resp BP Pulse Ox 97.2 F 78 16 100/64 98 02/23/19 11:28 02/23/19 10:59 02/23/19 10:59 02/23/19 10:59 02/23/19 10:59 - Laboratory Result Diagrams: 02/23/19 11:06 02/23/19 11:06 Laboratory results interpreted by me: 02/23/19 02/23/19 02/23/19 11:06 11:06 11:06 RBC 3.28 L Hgb 11.6 L Hct 34.6 L MCV 105 H MCH 35.3 H RDW 19.8 H Plt Count 69 L Seg Neuts % (Manual) 84 H Lymphocytes % (Manual) 9 L PT 22.0 H Sodium 130.0 L Potassium 2.5 L* Chloride 88 L Est GFR (Non-Af Amer) 57 L Total Bilirubin 41.0 H Direct Bilirubin 37.8 H AST 559 H ALT 162 H Alkaline Phosphatase 382 H Total Protein 8.4 H Albumin 3.3 L Urine Protein Urine Glucose (UA) Urine Bilirubin Urine Urobilinogen Urine Ascorbic Acid 02/23/19 11:36 RBC Hgb Hct MCV MCH RDW Plt Count Seg Neuts % (Manual) Lymphocytes % (Manual) PT Sodium Potassium Chloride Est GFR (Non-Af Amer) Total Bilirubin Direct Bilirubin AST ALT Alkaline Phosphatase Total Protein Albumin Urine Protein 30 H Urine Glucose (UA) 50 H Urine Bilirubin MODERATE H Urine Urobilinogen 4.0 H Urine Ascorbic Acid 20 H Critical Care Note - Critical Care Note Total time excluding time spent on procedures (mins): 60 Comments: Critical care time 60 exclusive from separate billable procedures for a patient requiring complex medical decision making, and high potential for clinical deterioration. Time spent obtaining history from patient or surrogate, discus sions with consultants, development of treatment plan with patient or surrogate, evaluation of patient's response to treatment, examination of patient, ordering and performing treatments and interventions, ordering and review of laboratory studies, re-evaluation of patient's condition, ordering and review of radiographic studies and review of old charts Discharge - Discharge Clinical Impression: Hypokalemia, Generalized weakness, Jaundice, Hyponatremia, Cholecystitis Alcoholic hepatitis Qualifiers: Ascites presence: with ascites Qualified Code(s): K70.11 - Alcoholic hepatitis with ascites Alcohol intoxication Qualifiers: Complication of substance-induced condition: uncomplicated Qualified Code(s): F10.920 - Alcohol use, unspecified with intoxication, uncomplicated Condition: Stable Disposition: [facility]
[2019-02-23 12:00] LABS: BILIRUBIN,DIRECT 37.8 mg/dL (0.0-0.4)
[2019-02-23 12:01] LABS: CALCIUM 9.1 mg/dL (8.4-10.2); POTASSIUM 2.5 mmol/L (3.6-5.0)
[2019-02-23] MEDS ORDERED: POTASSIUM CHLORIDE 10 MEQ CAPSULE.ER PO ONE (12:01)
--- NOTE | 2019-02-23 12:09 | RADIOLOGY REPORT (SQ) ---
EXAM DESCRIPTION: CHEST SINGLE VIEW COMPLETED DATE/TIME: 02/23/2019 11:44 am REASON FOR STUDY: weakness COMPARISON: None. EXAM PARAMETERS: NUMBER OF VIEWS: One view. TECHNIQUE: Single frontal radiographic view of the chest acquired. RADIATION DOSE: NA LIMITATIONS: None. FINDINGS: LUNGS AND PLEURA: No opacities, masses or pneumothorax. No pleural effusion. MEDIASTINUM AND HILAR STRUCTURES: No masses. Contour normal. HEART AND VASCULAR STRUCTURES: Heart normal in size. Normal vasculature. BONES: No acute findings. HARDWARE: None in the chest. OTHER: Post left mastectomy with breast implant and axillary surgical clips. IMPRESSION: NO ACUTE RADIOGRAPHIC FINDING IN THE CHEST. TECHNICAL DOCUMENTATION: JOB ID: [id number] [employer]- All Rights Reserved Reading location - IP/workstation name: [email or web address]
[2019-02-23 12:11] LABS: ALCOHOL 255 mg/dL (NONE DETECTED)
[2019-02-23 12:18] LABS: HEMOGLOBIN 11.6 g/dL (12.0-15.5)
[2019-02-23 12:19] LABS: MEAN CORPUSCULAR HEMOGLOBIN 35.3 pg (27.0-33.4); MEAN CORPUSCULAR HGB CONC 33.5 g/dL (32.0-36.0); PLATELET COUNT 69 10^3/uL (150-450)
[2019-02-23] MEDS: POTASSI CL 20 MEQ/50 ML RIDER 20 MEQ/50 ML RTUPB IV SCH ×2 (12:22→14:15)
[2019-02-23 12:30] LABS: ABSOLUTE LYMPHOCYTES# (MANUAL) 0.7 10^3/uL (0.5-4.7); ABSOLUTE MONOCYTES # (MANUAL) 0.4 10^3/uL (0.1-1.4); ABSOLUTE NEUTROPHILS# (MANUAL) 6.8 10^3/uL (1.7-8.2); BASOPHILS % (MANUAL) 0 % (0-2); EOSINOPHILS % (MANUAL) 2 % (0-6); LYMPHOCYTES % (MANUAL) 9 % (13-45); MONOCYTES % (MANUAL) 5 % (3-13); SEGMENTED NEUTROPHILS % (MAN) 84 % (42-78); TOTAL CELLS COUNTED 100; TOXIC VACUOLATION PRESENT
[2019-02-23 12:31] LABS: ANISOCYTOSIS 2+; PLATELET COMMENT DECREASED; POIKILOCYTOSIS 1+; POLYCHROMASIA SLIGHT; TARGET CELLS 1+
[2019-02-23 12:41] LABS: AMORPHOUS SEDIMENT,URINE TRACE /HPF; APPEARANCE,URINE CLOUDY; BILIRUBIN,URINE MODERATE (NEGATIVE); GLUCOSE, URINE 50 mg/dL (NEGATIVE); KETONES,URINE NEGATIVE (NEGATIVE); LEUKOCYTE ESTERASE,URINE NEGATIVE (NEGATIVE); NITRITE,URINE NEGATIVE (NEGATIVE); PROTEIN,URINE 30 mg/dL (NEGATIVE); URINE SPECIFIC GRAVITY 1.016
[2019-02-23 12:43] LABS: COLOR,URINE BROWN
[2019-02-23] MEDS ORDERED: METHYLPREDNISOLONE INJ 125 MG/2 ML SDV IV ONE (14:25)
--- NOTE | 2019-02-23 14:48 | EKG REPORT ---
SEVERITY:- ABNORMAL ECG - SINUS RHYTHM NONSPECIFIC INTRAVENTRICULAR CONDUCTION DELAY : Confirmed by: Rhonda Davis MD 23-Feb-2019 14:47:49
--- NOTE | 2019-02-23 15:40 | RADIOLOGY REPORT (SQ) ---
EXAM DESCRIPTION: U/S ABDOMEN LIMITED W/O DOP COMPLETED DATE/TIME: 02/23/2019 3:12 pm REASON FOR STUDY: RUQ pain, elevated bili COMPARISON: None. TECHNIQUE: Dynamic and static grayscale images acquired of the abdomen and recorded on PACS. Additio nal selected color Doppler and spectral images recorded. LIMITATIONS: Limited visualization. Poor acoustical window FINDINGS: PANCREAS: Limited visualization. no masses seen LIVER: 20.4 cm Moderate to marked fatty infiltration. No focal masses. LIVER VASCULATURE: Normal directional flow of the main portal vein and hepatic veins. GALLBLADDER: Gallbladder wall is thickened. Sludge present. Pericholecystic fluid. ULTRASOUND-DETECTED ROSADO'S SIGN: Negative. INTRAHEPATIC DUCTS AND COMMON DUCT: CBD and intrahepatic ducts normal caliber. No filling defects. INFERIOR VENA CAVA: Normal flow. AORTA: No aneurysm. RIGHT KIDNEY: Normal size. Normal echogenicity. No solid or suspicious masses. No hydronephros is. No calcifications. PERITONEAL AND RIGHT PLEURAL SPACE: Mild ascites. OTHER: No other significant findings. IMPRESSION: Sludge in the gallbladder with pericholecystic fluid in gallbladder wall thickening. Ch olecystitis. Enlarged fatty liver. Mild ascites. TECHNICAL DOCUMENTATION: JOB ID: [id number] [email or web address]- All Rights Reserved Reading location - IP/workstation name: [email or web address]
[2019-02-23] MEDS ORDERED: PIPERACILLIN/TAZOBACTAM 3.375 GM VIAL IV ONE (16:32)
[2019-02-23 18:08] LABS: VENOUS BLOOD PCO2 41.3 mmHg (35-63); VENOUS BLOOD PH 7.38 (7.30-7.42)
[2019-02-23 19:52] VITALS: BP 123/90
== END 2019-02-23 19:50 | disposition short-term general hospital (02) ==
LOC: ER 10:52
DX: K70.11 Alcoholic hepatitis with ascites (principal); F10.920 Alcohol use, unspecified with intoxication, uncomplicated; E87.6 Hypokalemia; K72.90 Hepatic failure, unspecified without coma; E87.1 Hypo-osmolality and hyponatremia; K81.9 Cholecystitis, unspecified; R53.1 Weakness; R53.81 Other malaise; R63.0 Anorexia; F17.200 Nicotine dependence, unspecified, uncomplicated; E11.9 Type 2 diabetes mellitus without complications
CPT/HCPCS: 93005; 99285; 96375; 96365; 96366; 96368; 36415; 87040; 87086; 82962; 80307; 82140; 85025; 85610; 87077; 80053; 81001; 84484; 87186; 82803; 83605; 71045; 76705; 93010; J3490; J2930; J3411; J3480; J7030; J7050; J2543